=== PATIENT | female | born 1980 | race African-American/Black ===

== ENCOUNTER 2020-08-23 05:24 | Inpatient (IN) | payer OTHER, MEDICAID ==
[~2020-08-23] VITALS: Ht 154.9 cm; Wt 77.1 kg
[2020-08-23] MEDS ORDERED: SODIUM CHLORIDE 0.9% 1,000 ML IV ONE (06:15)
[2020-08-23 06:27] LABS: CHLORIDE 111 mEq/L (98-107)
[2020-08-23 06:28] LABS: HCG SCREEN NEGATIVE
[2020-08-23 06:31] LABS: ETHANOL BLOOD < 10 mg/dL
[2020-08-23] MEDS ORDERED: ONDANSETRON HCL 4MG/2ML INJ IV STA (06:31)
[2020-08-23] MEDS ORDERED: KETOROLAC 30MG/ML VIAL IV STA (06:31)
[2020-08-23] MEDS ORDERED: MORPHINE SULFATE 4 MG/ML CPJ (NOT FOR IM USE) IV STA (06:31)
[2020-08-23 06:42] LABS: BASOPHILS % 0.8 % (0.0-2.0); EOSINOPHILS % 1.7 % (0.0-5.0); HEMATOCRIT. 37.8 % (36.0-48.0); HEMOGLOBIN. 12.6 g/dL (12.0-16.0); LYMPHOCYTES % 32.3 % (20.0-50.0); MEAN CORPUSCULAR HEMOGLOBIN 31.6 pg (28.0-32.0); MEAN CORPUSCULAR VOLUME 95.1 fL (81.0-99.0); MEAN PLATELET VOLUME 10.4 fl (7.4-10.4); MONOCYTES % 8.3 % (2.0-8.0); NEUTROPHILS % 56.9 % (40.0-76.0); PLATELET 279 x1000/uL (130-400); RED BLOOD CELL COUNT 3.98 mill/uL (4.2-5.4); RED CELL DISTRIBUTION WIDTH 13.9 % (11.6-14.6)
[2020-08-23] MEDS ORDERED: ASPIRIN 81MG TABLET PO ONE (06:45)
[2020-08-23 06:46] LABS: PROTHROMBIN TIME 11.1 sec (9.6-11.0)
[2020-08-23 08:31] LABS: CLARITY URINE CLEAR (CLEAR); COLOR URINE YELLOW (YELLOW); KETONES URINE TRACE (NEGATIVE); LEUKOCYTE ESTERASE URINE NEGATIVE (NEGATIVE); NITRITE URINE NEGATIVE (NEGATIVE); OCCULT BLOOD URINE TRACE (NEGATIVE); PROTEIN URINE NEGATIVE (NEGATIVE); SPECIFIC GRAVITY URINE 1.012 (1.005-1.030); UROBILINOGEN URINE 0.2 E.U./dL (0.2-1.0)
[2020-08-23 08:47] LABS: *AMPHETAMINES SCREEN URINE NEGATIVE (NEGATIVE); *BARBITURATES SCREEN URINE NEGATIVE (NEGATIVE); *BENZODIAZEPINES SCREEN URINE NEGATIVE (NEGATIVE); *COCAINE SCREEN URINE NEGATIVE (NEGATIVE); METHADONE URINE SCREEN NEGATIVE (NEGATIVE)
[2020-08-23 08:48] LABS: PHENCYCLIDINE URINE SCREEN NEGATIVE (NEGATIVE)
[2020-08-23 08:58] LABS: CANNABINOID URINE SCREEN PRESUMTIVE POSITIVE (NEGATIVE); OPIATES URINE SCREEN PRESUMTIVE POSITIVE (NEGATIVE)
[2020-08-23 12:00] VITALS: BP 106/64
[2020-08-23] MEDS ORDERED: LORAZEPAM 0.5MG TABLET PO PRN (12:00)
[2020-08-23] MEDS ORDERED: ACETAMINOPHEN 325MG TABLET PO PRN ×2 (12:00)
[2020-08-23] MEDS ORDERED: IPRATROPIUM/ALBUTEROL 0.5-3(2.5)MG/3ML NEB HHN PRN (12:00)
[2020-08-23] MEDS ORDERED: ONDANSETRON HCL 4MG/2ML INJ IV PRN (12:00)
[2020-08-23] MEDS ORDERED: DOCUSATE SODIUM 100MG CAPSULE PO PRN (12:00)
[2020-08-23] MEDS ORDERED: CLONIDINE 0.1MG TABLET PO PRN (12:00)
[2020-08-23 12:30] VITALS: BP 106/64
[2020-08-23] MEDS ORDERED: HYDR200T35 PO (14:53)
[2020-08-23] MEDS ORDERED: ADAL40PE SQ (14:57)
[2020-08-23] MEDS ORDERED: METH2.5T MT (14:57)
[2020-08-23] MEDS ORDERED: ONDA4TAB5 PO (14:57)
[2020-08-23] MEDS ORDERED: NON FORMULARY PATIENT HOME MED XX SCH (15:30)
[2020-08-23] MEDS ORDERED: PANTOPRAZOLE SODIUM 40 MG/VIAL IV SCH (15:30)
[2020-08-23] MEDS ORDERED: NICOTINE 14MG PATCH TD SCH (15:30)
[2020-08-23 16:00] VITALS: BP 125/40
[2020-08-23] MEDS: FOLIC ACID 1MG TABLET PO SCH (16:17)
[2020-08-23] MEDS: HYDROXYCHLOROQUINE SULFATE 200MG TABLET PO SCH (16:17)
[2020-08-23] MEDS ORDERED: METHOTREXATE SODIUM 2 . 5MG TABLET PO SCH (17:00)
[2020-08-23 20:00] VITALS: BP 105/62
[2020-08-23] MEDS: HYDROCODONE/ACETAMINOPHEN 5/325MG TABLET PO PRN (20:24)
[2020-08-23 20:39] LABS: C REACTIVE PROTEIN QUANT 1.8 mg/L (0.0-3.0)
[2020-08-23] MEDS ORDERED: METHOTREXATE SODIUM 2 . 5MG TABLET PO NR (22:00)
[2020-08-24] VITALS: BP 105/64
[2020-08-24 04:00] VITALS: BP 110/53
[2020-08-24] MEDS: HYDROCODONE/ACETAMINOPHEN 5/325MG TABLET PO PRN (04:46)
[2020-08-24 07:06] LABS: BASOPHILS % 0.7 % (0.0-2.0); EOSINOPHILS % 2.1 % (0.0-5.0); HEMATOCRIT. 35.4 % (36.0-48.0); LYMPHOCYTES % 33.3 % (20.0-50.0); MEAN CORPUSCULAR HEMOGLOBIN 32.3 pg (28.0-32.0); MEAN PLATELET VOLUME 9.2 fl (7.4-10.4); MONOCYTES % 10.3 % (2.0-8.0); NEUTROPHILS % 53.6 % (40.0-76.0); PLATELET 224 x1000/uL (130-400); RED BLOOD CELL COUNT 3.73 mill/uL (4.2-5.4); RED CELL DISTRIBUTION WIDTH 13.5 % (11.6-14.6)
[2020-08-24 07:07] LABS: CHLORIDE 110 mEq/L (98-107)
[2020-08-24 08:00] VITALS: BP 119/77
[2020-08-24 08:24] VITALS: BP 119/77
[2020-08-24] MEDS: HYDROXYCHLOROQUINE SULFATE 200MG TABLET PO SCH (10:33)
[2020-08-24] MEDS: FOLIC ACID 1MG TABLET PO SCH (10:33)
[2020-08-24] MEDS ORDERED: LIDO700A30 TOP (10:38)
[2020-08-24] MEDS ORDERED: LIDOCAINE 5% PATCH TOP SCH (11:00)
[2020-08-24 12:50] VITALS: BP 114/76
[2020-08-24 14:14] VITALS: BP 114/76
[2020-08-30] MEDS ORDERED: METHOTREXATE SODIUM 2 . 5MG TABLET PO SCH (09:00)
== END 2020-08-24 15:07 | disposition home or self-care (01) | DRG 311 ==
LOC: ER 05:24 → 5WST 09:01 → EDBEDREQ 09:05 → ENRESERV 10:22
PROVIDERS: ADMIT Internal Medicine; ATTEND Internal Medicine
DX: I20.1 Angina pectoris with documented spasm (principal); K92.1 Melena; F12.90 Cannabis use, unspecified, uncomplicated; F17.200 Nicotine dependence, unspecified, uncomplicated; M06.9 Rheumatoid arthritis, unspecified; F11.90 Opioid use, unspecified, uncomplicated; M32.9 Systemic lupus erythematosus, unspecified; M54.6 Pain in thoracic spine; Z71.6 Tobacco abuse counseling; Z82.49 Family history of ischemic heart disease and other diseases of the circulatory system; Z88.0 Allergy status to penicillin; Z98.891 History of uterine scar from previous surgery
CPT/HCPCS: 36415; 71045; 78580; 80048; 80053; 80305; 80320; 81003; 83880; 84484; 84703; 85025; 85379; 85651; 86140; 93005; 93306; 93970; 99291; C9113; J1885; J2270; J2405; J7030; J8610; G0480